=== PATIENT | male | born 1950 | race Caucasian/White ===

== ENCOUNTER 2023-03-22 15:01 | Inpatient (IN) | payer MEDICARE, SELFPAY ==
[2023-03-22] VITALS (7 sets, daily range): BP systolic 106–181; BP diastolic 70–93; PULSE 71–120; RESP 20–120; TEMP 36.1–36.7; O2SAT 90–94; BMI 32.0
--- NOTE | ~2023-03-22 | XR_ITS ---
EXAMINATION: XR chest 1V portable DATE: 03/25/2023 10:30 INDICATION: Cough and shortness of breath. TECHNIQUE: A single frontal view of the chest was obtained. COMPARISON: Chest single view 03/23/2023 FINDINGS: There are airspace opacities at left lung base. No pleural effusion or pneumothorax. The he art size is normal. IMPRESSION: 1. Airspace opacities at left lung base, consistent with atelectasis versus pneumonia. Reviewed, dictated and finalized at location E. ER ATTENDANT IMPRESSION: 1. Airspace opacities at left lung base, consistent with atelectasis versus pne umonia.
--- NOTE | ~2023-03-22 | XR_ITS ---
Portable chest x-ray Comparison: 08/21/2018 Clinical History: Cough Findings: Lungs are clear, without focal consolidation or pleural effusion. Cardiomediastinal silho uette is stable. Bones and soft tissues are unremarkable. Impression: Clear lungs. Reviewed, dictated and finalized at location . GOLF PROFESSIONAL Impression: Clear lungs.
--- NOTE | ~2023-03-22 | CT_ITS ---
EXAMINATION: CT brain wo con DATE: 03/22/2023 16:50 INDICATION: Fall. Seizure. Confusion. TECHNIQUE: Computed tomography (CT) of the head was performed without intravenous contrast. The mA wa s adjusted according to patient size. Iterative reconstruction technique was employed. Exam dose: 12 10.67 mGy-cm total exam DLP. COMPARISON: 08/21/2018 MRI brain/brainstem 08/21/2018 CT brain FINDINGS: Examination is limited by motion artifact despite 2 sets of images. There is an old left parieto-occipital infarct, present on 08/21/2018. There is prominent bilateral carotid siphon and supraclinoid internal carotid artery calcification. V ertebral and basilar artery calcifications. There is nonspecific diminished attenuation of the cerebr al white matter, likely due to chronic small vessel ischemic changes. No apparent intracranial mass lesion or hemorrhage. No midline shift or mass effect is noted. No subd ural or epidural hematoma is detected. There is radiopaque material within the middle meningeal artery and branches at the foramen spinosum and along the inner table of the skull presumably from previous interventional procedure to occlude t he artery. There is mild mucoperiosteal thickening of the maxillary sinuses. The remainder of the paranasal sinu ses and the mastoid air cells are normally developed and aerated. Likely old blowout fracture of the medial wall of the left orbit. Left frontal raquel hole. No skull fracture or bone destruction is noted. 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 Reviewed, dictated and finalized at location L. 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
--- NOTE | ~2023-03-22 | XR_ITS ---
EXAMINATION: XR barium swallow modified DATE: 03/26/2023 10:52 INDICATION: Dysphagia. TECHNIQUE: The patient was given barium-containing material of multiple consistencies to swallow by mariel duff speech pathologist while I performed fluoroscopy. Dose-area product was [id number] Gy-cm2. FINDINGS: Oral Stage: Within functional limits Pharyngeal Phase: Reduced laryngeal elevation, reduced tongue base retraction, piriform sinus residu e Laryngeal penetration with thin liquids Cervical/Esophageal Stage: Within functional limits IMPRESSION: Modified esophagram findings as above. Please refer to the speech [facility] report [facility]. Reviewed, dictated and finalized at Location A. Reviewed, dictated and finalized at location A. MAKER IMPRESSION: Modified esophagram findings as above. Please refer to the speech t herapy report for specific recommendations.
--- NOTE | ~2023-03-22 | MR_ITS ---
EXAMINATION: MR brain/brain stem wo/w con DATE: 03/28/2023 11:34 INDICATION: Seizures TECHNIQUE: Magnetic resonance imaging (MRI) of the brain and brainstem was performed without and with 20 mL Multihance intravenous contrast. Sequences included sagittal and axial T1-weighted SE, axial d iffusion-weighted FS SE, axial 3D SWAN, axial T2-weighted FLAIR, and axial T2-weighted FSE. Postcontr ast axial and coronal T1-weighted SE was obtained. Apparent diffusion coefficient (ADC) maps were cre ated. COMPARISON: Head CT dated 03/25/2023 and brain MR dated 08/22/2019 FINDINGS: Small region of encephalomalacia at the site of a previously acute infarct in the left parieto-occipi trevon region. There are, unchanged small old lacunar infarcts along the right corpus callosum. There ar e no areas of restricted diffusion to suggest acute infarction. No acute intracranial hemorrhage or a bnormal intracranial mass lesion. There are several scattered tiny foci of susceptibility artifact co nsistent with chronic microhemorrhage in the bilateral cerebral hemispheres, basal ganglia, thalamus and rosendo which could relate to either sequela chronic hypertension or amyloid angiopathy. There are s cattered areas of nonspecific increased T2-weighted signal intensity in the cerebral white matter, pr edominantly involving the deep and periventricular white matter. There are no intraparenchymal signal abnormalities seen on the other pulse sequences. The ventricles are symmetric and normal in size. No rmal variant cavum septum pellucidum. There are no abnormal extra-axial fluid collections. Flow voids are seen in the cerebral arteries on the T2-weighted sequences consistent with their expected patenc y. Moderate mucosal thickening in the bilateral ethmoid and maxillary sinuses. Visualized orbits and soft tissues are unremarkable. There are no areas of abnormal enhancement on the post contrast images . IMPRESSION: 1. No acute intracranial process or abnormally enhancing brain lesions. 2. Old infarct in the left parieto-occipital region and a couple small old lacunar infarcts along the right corpus callosum. 3. Several scattered tiny foci of susceptibility artifact consistent with chronic microhemorrhage in the bilateral cerebral hemispheres, basal ganglia, thalami and rosendo could be sequela of chronic hyper tension or amyloid angiopathy. 4. Scattered nonspecific periventricular predominant white matter T2 hyperintensity with a small vess els disease. Reviewed, dictated and finalized at location A. ENTION MANAGER IMPRESSION: 1. No acute intracranial process or abnormally enhancing brain lesions. 2. Old infarct in the left parieto-occipital region and a couple small old lacu santo infarcts along the right corpus callosum. 3. Several scattered tiny foci of susceptibility artifact consistent with chron ic microhemorrhage in the bilateral cerebral hemispheres, basal ganglia, thalam i and rosendo could be sequela of chronic hypertension or amyloid angiopathy. 4. Scattered nonspecific periventricular predominant white matter T2 hyperinten sity with a small vessels disease.
--- NOTE | ~2023-03-22 | US_ITS ---
EXAMINATION: US abdomen limited DATE: 03/25/2023 15:06 INDICATION: Elevated liver function tests TECHNIQUE: Multiple grayscale and Doppler ultrasound images of the abdomen were obtained. COMPARISON: None available FINDINGS: The head and body of the pancreas are normal. The pancreatic tail is obscured by bowel gas. The liver is normal with normal echogenicity and echotexture. No surface nodularity. Normal hepatope trevon flow in the main portal vein. The gallbladder is normal with no abnormal wall thickening, pericho lecystic fluid or stones. The normal common bile duct measures 4 mm. There was no sonographic Sterling sign. IMPRESSION: 1. No sonographic correlate for the patient's symptoms. Reviewed, dictated and finalized at location F. EL MAKING MACHINE OPERATOR
--- NOTE | ~2023-03-22 | CT_ITS ---
EXAMINATION: CT brain wo con DATE: 03/25/2023 09:42 INDICATION: Acute mental status change. TECHNIQUE: Computed tomography (CT) of the head was performed without intravenous contrast. The mA wa s adjusted according to patient size. Iterative reconstruction technique was employed. The dose-lengt h product was 681.00 mGy-cm. COMPARISON: Head CT 03/22/2023, brain MRI 08/21/2018 FINDINGS: There is an old infarct involving left temporal parietal occipital region. There are scatte red areas of low attenuation in the cerebral white matter. There is no intracranial hemorrhage, acute infarction, or abnormal intracranial mass lesion. There is ex vacuo dilatation of trigone of left la teral ventricle. There is an old blowout fracture of medial wall of left orbit. There is mild mucosal thickening in the paranasal sinuses. The mastoid air cells are normal. There is embolization materia l in left middle meningeal artery. There is a left-sided raquel hole. IMPRESSION: 1. Old infarct involving left temporal parietal occipital region. 2. Moderate nonspecific cerebral white matter disease, which likely represents chronic small vessel i schemic disease. Reviewed, dictated and finalized at location E. R REWINDER OPERATOR IMPRESSION: 1. Old infarct involving left temporal parietal occipital region. 2. Moderate nonspecific cerebral white matter disease, which likely represents chronic small vessel ischemic disease.
--- NOTE | ~2023-03-22 | CT_ITS ---
EXAMINATION: CT cervical spine wo con DATE: 03/22/2023 16:50 INDICATION: Neck injury. Fall. TECHNIQUE: Computed tomography (CT) of the cervical spine was performed without intravenous contrast. Automated exposure control and iterative reconstruction technique were employed. The dose-length pro duct was 545.96 mGy-cm. COMPARISON: None FINDINGS: There is embolization material in the left middle meningeal artery. There is 6 degrees levo curvature of cervical spine. Vertebral body heights are normal. There is severely decreased disc heig ht at C3-C4 and mildly decreased disc height at C4-C5, C5-C6, and C6-C7. The following disc levels ar e specifically discussed: C2-C3: There is mild bilateral uncovertebral joint osteoarthritis. There is severe bilateral facet shree int osteoarthritis. There is mild bilateral neural foraminal stenosis. There is no central canal sten osis. C3-C4: There is severe bilateral uncovertebral joint osteoarthritis. There is severe bilateral facet joint osteoarthritis. There is moderate bilateral neural foraminal stenosis. There is mild central ca nal stenosis. C4-C5: There is moderate right and mild left uncovertebral joint osteoarthritis. There is severe bila teral facet joint osteoarthritis. There is mild bilateral neural foraminal stenosis. There is mild ce ntral canal stenosis. C5-C6: There is mild bilateral uncovertebral joint osteoarthritis. There is severe bilateral facet shree int osteoarthritis. There is mild bilateral neural foraminal stenosis. There is mild central canal st enosis. C6-C7: There is no uncovertebral joint osteoarthritis. There is severe bilateral facet joint osteoart hritis. There is mild bilateral neural foraminal stenosis. There is no central canal stenosis. C7-T1: There is no uncovertebral joint osteoarthritis. There is mild right and severe left facet join t osteoarthritis. There is mild left neural foraminal stenosis. There is no central canal stenosis. IMPRESSION: 1. No fracture. 2. Severe cervical spondylosis. Reviewed, dictated and finalized at location E. ESSOR OF VISUAL ARTS
--- NOTE | 2023-03-22 15:10 | PC.NURSE ---
abrasion noted to left wrist, EMS reports abrasion present on their arrival
--- NOTE | 2023-03-22 15:10 | ECG_ITS ---
Measurements Intervals [place] Rate: 100 P: 42 MA: 199 QRS: 15 QRSD: 73 T: 66 QT: 318 QTc: 411 Interpretive Statements SINUS TACHYCARDIA LOW QRS VOLTAGE IN LIMB LEADS CANNOT RULE OUT SEPTAL INFARCT, AGE INDETERMINATE BASELINE ARTIFACT- II, III, AVR, AVL, AVF ABNORMAL ECG COMPARED TO ECG 08/21/2018 11:00:30 SINUS TACHYCARDIA NOW PRESENT Electronically Signed On 03-22-2023 20:43:19 ORACLE HYPERION CONSULTANT by Ten Freeman D.O.
[2023-03-22] MEDS: LORazepam INJ (*CRX) 2 MG/ML VIAL IV PUSH ×2 (15:15→15:33)
[2023-03-22] MEDS: levETIRAcetam 1000MG/NACL100ML 1,000 MG/100 ML BAG 400 MG IVPB (15:30)
[2023-03-22 15:32] LABS: Basophils Absolute Auto 0.1 K/mm3 (0.0-0.1); Basophils Percent Auto 0.8 % (0.2-1.2); Eosinophils Absolute Auto 0.1 K/mm3 (0-0.3); Eosinophils Percent Auto 0.5 % (0-4.4); Hematocrit 56.2 % (42.0-52.0); Hemoglobin 17.5 g/dL (14.0-18.0); Immature Granulocyte Percent A 0.6 % (0-0.5); Lymphocytes Absolute Auto 3.44 K/mm3 (0.9-3.2); Lymphocytes Percent Auto 19.9 % (18.3-44.2); Mean Corpuscular HGB Conc 31.1 g/dl (32-36); Mean Corpuscular Hemoglobin 30.9 pg (26-34); Mean Corpuscular Volume 99.1 fl (80-100); Mean Platelet Volume 10.5 fl (7.4-10.4); Monocytes Absolute Auto 0.6 K/mm3 (0.1-0.6); Monocytes Percent Auto 3.5 % (2.6-8.5); Neutrophils Absolute Auto 12.9 K/mm3 (1.3-6.7); Neutrophils Percent Auto 74.7 % (45.5-73.1); Platelet Count Result 270 k/mm3 (150-375); Red Blood Count 5.67 M/mm3 (4.6-6.20); Red Cell Distribution Width 12.3 % (11.5-14.5); White Blood Count 17.3 K/mm3 (4.5-10.0)
--- NOTE | 2023-03-22 15:32 | PC.NURSE ---
continues to be combative rolling on bed, another dose of ativen given per MADISON Ordoñez
[2023-03-22 15:43] LABS: Alanine Aminotransferase 50 U/L (6-50); Albumin Level 4.9 g/dL (3.5-5.1); Alkaline Phosphatase 101 U/L (38-126); Anion Gap 29 mmol/L (8-16); Aspartate Amino Transferase 26 U/L (17-59); Bilirubin,Total 1.1 mg/dL (0.2-1.3); Blood Urea Nitrogen 8 mg/dL (9-20); Calcium 9.4 mg/dL (8.4-10.2); Carbon Dioxide 13 mmol/L (22-30); Chloride 99 mmol/L (98-107); Estimated CRCL calculation 78 ml/min; Estimated Glomerular Filt Rate > 60; Glucose 213 mg/dL (65-110); Potassium 4.1 mmol/L (3.4-5.0); Sodium 141 mmol/L (137-145)
[2023-03-22 15:45] LABS: INR 1.1; Partial Thromboplastin Time 30.9 SECONDS (22.3-36.8); Prothrombin Time 14.3 Seconds (11.1-14.7)
[2023-03-22 15:50] LABS: Creatine Kinase 170 U/L (55-170)
[2023-03-22 15:59] LABS: Appearance Urine Clear (Clear); Bacteria Urine None Seen /hpf; Bilirubin Urine Negative (Negative); Blood Urine 2+ (Negative); Color Urine Yellow (Yellow); Glucose Urine UA Negative (Negative); Ketones Urine Trace mg/dL (Negative); Leukocyte Esterase Ur Negative LEU/UL (Negative); Nitrate Urine Negative (Negative); Protein Urine 2+ mg/dL (Negative); Specific Grav Ur 1.013 (1.001-1.035); Squamous Epithelial Cell Urine None seen /hpf (Few); Transitional Epi Cells Urine Present /hpf (None Seen); Urobilinogen Urine 0.2 mg/dL (<2.0); WBC Urine 0-5 /hpf
[2023-03-22 16:00] LABS: Add Urine Microscopic? YES
[2023-03-22 16:13] LABS: Barbiturate Screen Urine Negative (Negative); Benzodiazepines Screen Urine Negative (Negative)
[2023-03-22 16:13] LABS: Lactic Acid Reflex 20.2 mmol/L (0.7-2.0)
[2023-03-22 16:14] LABS: Amphetamine Screen Urine Negative (Negative); Cannabinoid Screen Urine Negative (Negative); Cocaine Screen Urine Negative (Negative); Methadone Screen Urine Negative (Negative); Opiate Screen Urine Negative (Negative)
--- NOTE | 2023-03-22 16:14 | ED.SEIZURE ---
HPI - Seizure General Chief Complaint: Seizure Stated Complaint: seizure Time Seen by Provider: 03/22/23 15:13 History of Present Illness HPI Narrative: Patient is a 72 year old male who presents to the emergency department this afternoon via EMS due to a seizure episode. EMS was called by patient's family members and when they arrived patient was noted to be postictal. On route to the emergency department, patient had another witnessed seizure episode by EMS. EMS did not administer any medications as they did not have any IV. EMS was informed that the patient did have a fall today and did hit his head, however, it is unsure if the fall was before or after the seizure episode. The remainder of history of present illness and review of systems limited secondary to the patient's current postictal status. Related Data Allergies Allergy/AdvReac Type Severity Reaction Status Date / Time codeine Allergy Unknown Nausea and Verified 04/13/22 14:01 Vomiting Review of Systems Review of Systems: Unable to obtain a full review of systems secondary to the patient's current postictal status. PMFSH Past Medical History Medical History Dysarthria Expressive aphasia History of CVA with residual deficit Smoking Surgical History Surgical History H/O umbilical hernia repair Nasal fracture Family History Family History Father Heart disease Sibling Heart disease Mother Hypothyroidism Social History Social History Smoking packs per day: 0.5 Smoking cigarettes per day: 10.0 Years smoked: 40 Smoking pack-years: 20.00 Smoking status: Current every day smoker Tobacco type: cigarettes Second hand tobacco smoke exposure: No Alcohol intake: former Substance use: former Substance use type: crack/cocaine Lack of Transportation: No Lack of Food: Never True Current Housing: I Have Housing Concerned About Future Housing: No Difficulty Paying Gas/Electric Bills: No Difficulty Paying for Meds: No Currently Unemployed: No Education: Bachelor's Degree Difficulty w/ Childcare or Family Care: No Living arrangements: with family Occupation/Education: unemployed Gender identity (if verbalized by the patient): Male Exam Narrative: General: Postictal, agitated, afebrile. HEENT: PERRL, no rhinorrhea, no post nasal drip, oropharynx clear. Neck: Trachea midline, no JVD, no lymphadenopathy, C-collar placed. Cardiovascular: Tachycardic with regular rhythm, no murmurs, rubs or gallops, no peripheral edema. Respiratory: Clear to auscultation bilaterally, tachypnea, no wheezing, no rhonchi, no rubs, no respiratory distress. Abdomen: Soft, nontender, nondistended, no rebound, no guarding, no peritoneal signs. Musculoskeletal: No joint swelling or deformity, normal muscle tone. Skin: No rashes or petechia, no signs of infection. Psychiatric: Postictal and agitated. Neurological: Unable to assess as patient is currently postictal and agitated requiring soft restraints, moving all 4 extremities spontaneously, no neurological deficit appreciated within the limitation of the exam. Course Vital Signs Vital signs: Vital Signs Temperature 97.2 F L 03/22/23 15:00 Pulse Rate 120 H 03/22/23 15:00 Respiratory Rate 120 H 03/22/23 15:00 Blood Pressure 165/90 H 03/22/23 15:00 Pulse Oximetry 94 03/22/23 15:00 Oxygen Delivery Room Air 03/22/23 15:00 Temperature 97.2 F L 03/22/23 15:00 Pulse Rate 120 H 03/22/23 15:00 Respiratory Rate 120 H 03/22/23 15:00 Blood Pressure 165/90 H 03/22/23 15:00 Pulse Oximetry 94 03/22/23 15:00 Oxygen Delivery Room Air 03/22/23 15:00 MDM - Seizure MDM Narrative Medical decision making narrative: The patient was evaluated by myself in the emergency department. Histor
[2023-03-22 16:22] LABS: Influenza A QL RT-PCR Negative (Negative); Influenza B QL RT-PCR Negative (Negative); RSV RNA, RT-PCR Negative (Negative); SARS-CoV-2 RNA PCR Negative (Negative)
[2023-03-22 16:24] LABS: Phencyclidine Screen Urine Negative (Negative)
[2023-03-22] MEDS: SODIUM CHLORIDE 0.9% IV 1,000 ML 999 ML IV CONT ×2 (18:15)
[2023-03-22 18:40] LABS: Reflex Lactic Acid Yes or No Add Lactic
--- NOTE | 2023-03-22 19:38 | ADMGEN ---
This patient, Freddy Hernandez, was admitted to IMU Room 206-01. Patient/family oriented to hospital policies and general routines including ID bracelet, bed and alarms, visiting hours, pain management, procedures, bathroom and other care routines, personal items, smoking policy, room service/diet, and visiting hours. Information on how to activate the Rapid Response Team has been discussed. Patient/Family are encouraged to report perceived risks to care and to ask questions if they do not understand what they are told or what they should do.
[2023-03-22 21:11] LABS: Lactic Acid 1.3 mmol/L (0.7-2.0)
--- NOTE | 2023-03-22 21:16 | PM.IMHP ---
H&P: HPI History of Present Illness Date/Time: 03/22/23 21:45 Chief Complaint: Seizure. Narrative: This is a 72-year-old male smoker with history of seizure attributed to intracerebral hemorrhage in April 2022 who presented to the emergency department from EMS from home for evaluation of seizure activity. The patient is postictal and unable to provide any history and thus a majority of the following is obtained via a review of his EMR as well as information provided by his son. He apparently had a fall with witnessed seizure activity at home family members called 911. On EMS arrival he was postictal and had another seizure in route to the hospital. Once in the emergency department he was given lorazepam 2 mg IV x1 in addition to 1000 mg of levetiracetam. He has been postictal since that time. He reportedly had a seizure when he had his intracerebral hemorrhage last year but was never started on seizure medications. He has not had any seizures since that time up until now. He has been afebrile since arrival with stable blood pressures. Initial labs were significant for a WBC count of 17.3, lactic acid 20.2, serum carbon dioxide 13, CK 170. He is being admitted in this setting for close monitoring and neurology consultation. There were no reports of recent illnesses, medication changes, or concerns for withdrawal. Review of Systems Review of Systems: Unable to be obtained given current clinical condition. [facility] Past Medical History Medical History Dysarthria Expressive aphasia History of CVA with residual deficit Intracerebral hemorrhage Seizure Smoking Surgical History Surgical History (Updated 03/22/23 @ 23:12 by Calista Tirado PA-C) History of raquel hole surgery History of umbilical hernia repair Nasal fracture Family History Family History Father Heart disease Sibling Heart disease Mother Hypothyroidism Social History Social History (Updated 03/22/23 @ 23:12 by Calista Tirado PA-C) Social History: Surrogate medical decision maker: Arnie Hernandez, son. Code status: Full code. Smoking packs per day: 0.5 Smoking cigarettes per day: 10.0 Years smoked: 40 Smoking pack-years: 20.00 Smoking status: Current every day smoker Tobacco type: cigarettes Second hand tobacco smoke exposure: No Alcohol intake: former Substance use: former Substance use type: crack/cocaine Do You Feel Safe in your Home?: Yes Lack of Transportation: No Lack of Food: Never True Current Housing: I Have Housing Concerned About Future Housing: No Difficulty Paying Gas/Electric Bills: No Difficulty Paying for Meds: No Currently Unemployed: No Education: Decline to Answer Difficulty w/ Childcare or Family Care: No Living arrangements: with family Occupation/Education: unemployed Spiritual care concerns: No Meds Home Medications and Allergies Home Medications Medication Instructions Recorded Confirmed Type No Home Medications 03/22/23 03/22/23 History Allergies Allergy/AdvReac Type Severity Reaction Status Date / Time codeine Allergy Unknown Nausea and Verified 04/13/22 14:01 Vomiting Vital Signs Vital Signs - 24 hr 03/22/23 15:00 03/22/23 19:30 03/22/23 20:26 Temperature 97.2 F L 98.1 F Pulse Rate 120 H 90 97 Respiratory Rate 120 H 20 22 H Blood Pressure 165/90 H 161/77 H 181/93 H Pulse Oximetry 94 94 91 Oxygen Delivery Room Air Exam Narrative: General: Mildly ill-appearing gentleman supine in bed asleep. Weight: 101.3 kg. BMI: 32.0. HEENT: Pupils are approximately 3 mm and reactive. Sclera anicteric. Tacky mucous membranes. Neck: Supple. No obvious JVD or bruits. Trachea midline. Respiratory: Respirations appear nonlabored. He is snoring after receiving Ativan in the ED. lung sounds are coarse anteriorly. Cardiovascular: Regular rate and rhythm with S1-S2. Gastrointestinal
[2023-03-23] VITALS (13 sets, daily range): BP systolic 126–140; BP diastolic 64–80; PULSE 62–85; RESP 16–22; TEMP 36.2–37.1; O2SAT 90–97
[2023-03-23 04:47] LABS: Hematocrit 47.4 % (42.0-52.0); Hemoglobin 15.8 g/dL (14.0-18.0); Mean Corpuscular HGB Conc 33.3 g/dl (32-36); Mean Corpuscular Hemoglobin 30.7 pg (26-34); Mean Corpuscular Volume 92.2 fl (80-100); Mean Platelet Volume 11.4 fl (7.4-10.4); Platelet Count Result 109 k/mm3 (150-375); Red Blood Count 5.14 M/mm3 (4.6-6.20); Red Cell Distribution Width 12.4 % (11.5-14.5); White Blood Count 8.6 K/mm3 (4.5-10.0)
[2023-03-23 05:00] LABS: Alanine Aminotransferase 13 U/L (6-50); Albumin Level 3.9 g/dL (3.5-5.1); Alkaline Phosphatase 74 U/L (38-126); Anion Gap 7 mmol/L (8-16); Aspartate Amino Transferase 29 U/L (17-59); Bilirubin,Total 1.2 mg/dL (0.2-1.3); Blood Urea Nitrogen 6 mg/dL (9-20); Calcium 8.7 mg/dL (8.4-10.2); Carbon Dioxide 24 mmol/L (22-30); Chloride 105 mmol/L (98-107); Estimated CRCL calculation 100 ml/min; Estimated Glomerular Filt Rate > 60; Glucose 101 mg/dL (65-110); Magnesium 2.4 mg/dL (1.6-2.3); Potassium 3.7 mmol/L (3.4-5.0); Sodium 136 mmol/L (137-145)
[2023-03-23] MEDS: HALOPERIDOL LACTATE 5 MG/ML VIAL IM (05:06)
[2023-03-23] MEDS: diphenhydrAMINE HCl INJ 50 MG/ML VIAL IV PUSH (05:06)
[2023-03-23 05:21] LABS: Creatine Kinase 1259 U/L (55-170)
[2023-03-23] MEDS: levETIRAcetam 500 MG TABLET PO ×2 (11:15→20:41)
[2023-03-23] MEDS: SODIUM CHLORIDE 0.9% IV 1,000 ML 75 ML IV CONT (11:17)
--- NOTE | 2023-03-23 11:27 | WPDNEURCNPN ---
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 Patient has already been started on Keppra which has been initially given 1000mg intravenously followed by 500mg q.12 hours. And initially he received the lorazepam intravenously. Anticonvulsant would be continued as such with further observation over the next 24hours if seizures recur dosage will be adjusted. Consult date: 03/23/23 HPI: Freddy Hernandez is a 72 year old male admitted to the hospital through the emergency room where he was brought by the EMS due to the seizure episode EMS were called to the home by the family's member and when they arrived at the scene patient was notedly postictal while in the emergency room he had another witnessed seizure patient also has fallen at home as reported by the family member to the EMS. He is allergic to codeine and has ongoing history of expressive dysphagia with history of cerebrovascular accident in the past. He has a history of smoking pack years 20 and currently everyday smoker though his former alcohol intaker. Initial exam in the emergency room was notedly postictal with normal vital signs at the blood pressure 165/90 but temp 97.2? CBC with leukocytosis BMP with blood sugar of 213 and lactic acid of 20.2 routine lab negative including screening for the influenza a influenza B RSV and COVID. radiologically CT scan cervical spine was compatible with severe cervical spondylosis but mild cervical stenosis. CT scan of the brain revealed no bleed, chronic left parietal occipital infarct, and left frontal raquel hole with occlusion of the left middle meningeal artery. [facility] Past Medical History Medical History Dysarthria Expressive aphasia History of CVA with residual deficit Intracerebral hemorrhage Seizure Smoking Surgical History Surgical History (Updated 03/22/23 @ 23:12 by Calista Tirado PA-C) History of raquel hole surgery History of umbilical hernia repair Nasal fracture Family History Family History Father Heart disease Sibling Heart disease Mother Hypothyroidism Social History Social History (Updated 03/22/23 @ 23:12 by Calista Tirado PA-C) Social History: Surrogate medical decision maker: Arnie Hernandez, son. Code status: Full code. Smoking packs per day: 0.5 Smoking cigarettes per day: 10.0 Years smoked: 40 Smoking pack-years: 20.00 Smoking status: Current every day smoker Tobacco type: cigarettes Second hand tobacco smoke exposure: No Alcohol intake: former Substance use: former Substance use type: crack/cocaine Do You Feel Safe in your Home?: Yes Lack of Transportation: No Lack of Food: Never True Current Housing: I Have Housing Concerned About Future Housing: No Difficulty Paying Gas/Electric Bills: No Difficulty Paying for Meds: No Currently Unemployed: No Education: Decline to Answer Difficulty w/ Childcare or Family Care: No Living arrangements: with family Occupation/Education: unemployed Spiritual care concerns: No Meds Home Medications and Allergies Home Medications Medication Instructions Recorded Confirmed Type No Home Medications 03/22/23 03/22/23 History Allergies Allergy/AdvReac Type Severity Reaction Status Date / Time codeine Allergy Unknown Nausea and Verified 04/13/22 14:01 Vomiting Vital Signs Vital Signs - 24 hr 03/22/23 15:00 03/22/23 19:30 03/22/23 20:26 Temperature 36.2 C L 36.7 C Pulse R
--- NOTE | 2023-03-23 11:56 | PM.IMPN ---
Progress Note: A&P Assessment and Plan (1) Recurrent seizures: Code(s): G40.909 - Epilepsy, unspecified, not intractable, without status epilepticus Status: Acute Assessment and Plan: Patient had seizure early last year but was never was started on any medications. Patient had recurrent witnessed seizure. Patient given lorazepam and 1000 mg of Keppra in the ED. Patient started on Keppra 500 mg b.i.d.. Neurology consulted. Patient remains postictal. (2) Postictal state: Code(s): R56.9 - Unspecified convulsions Status: Acute Assessment and Plan: Patient remains postictal and is not alert or oriented. (3) Lactic acidosis: Code(s): E87.20 - Acidosis, unspecified Status: Acute Assessment and Plan: Resolved. (4) Leukocytosis: Code(s): D72.829 - Elevated white blood cell count, unspecified Status: Acute Assessment and Plan: Resolved. Subjective Date/time seen: 03/23/23 11:56 Interval history: Patient is postictal and could not answer any questions. He was not alert or oriented. Awaiting neuro recommendations. Patient was coughing on examination. Will order chest x-ray. Exam Narrative: GENERAL: Comfortable, no acute distress HENMT: moist mucous membranes EYES: EOM intact b/l NECK: no lymphadenopathy RESPIRATORY: Bibasilar crackles, distant breath sounds CARDIO: RRR GI: soft, nontender, bowel sounds present SKIN: no rashes EXTREMITIES: no edema, redness or tenderness Objective Data Vital Signs Vital Signs: Vital Signs - 24 hr 03/22/23 15:00 03/22/23 19:30 03/22/23 20:26 Temperature 97.2 F L 98.1 F Pulse Rate 120 H 90 97 Respiratory Rate 120 H 20 22 H Blood Pressure 165/90 H 161/77 H 181/93 H Pulse Oximetry 94 94 91 Oxygen Delivery Room Air 03/22/23 20:00 03/22/23 22:00 03/22/23 23:50 Temperature Pulse Rate 86 88 74 Respiratory Rate Blood Pressure Pulse Oximetry Oxygen Delivery 03/22/23 23:50 03/22/23 23:57 03/23/23 01:23 Temperature 96.9 F L Pulse Rate 78 71 76 Respiratory Rate 22 H 22 H Blood Pressure 106/70 Pulse Oximetry 91 90 Oxygen Delivery Room Air 03/23/23 03:58 03/23/23 03:58 03/23/23 04:08 Temperature 97.7 F Pulse Rate 72 72 85 Respiratory Rate 22 H 22 H Blood Pressure 140/74 Pulse Oximetry 90 96 Oxygen Delivery Room Air 03/23/23 05:36 03/23/23 08:00 Temperature 98.7 F Pulse Rate 78 72 Respiratory Rate 20 Blood Pressure 126/74 Pulse Oximetry 97 Oxygen Delivery Intake/Output Intake/Output: Intake & Output 03/20/23 03/21/23 03/22/23 03/23/23 23:59 23:59 23:59 23:59 Intake Total 2100 Balance 2100 Meds/Results Medications: Active Medications Generic Name Dose Route Start Last Admin Trade Name Freq PRN Reason Stop Dose Admin Sodium Chloride 1,000 mls @ 75 mls/hr 03/23/23 08:00 03/23/23 11:17 Normal Saline Iv IV CONT 75 mls/hr .[id number] SWAPNIL Administration Levetiracetam 500 mg 03/23/23 09:00 03/23/23 11:15 Levetiracetam 500 Mg Tablet PO 500 mg Q12HR SWAPNIL Administration Lorazepam 2 mg 03/22/23 23:18 Lorazepam Inj (*Crx) 2 Mg/Ml Vial IV PUSH Q2H PRN Seizures > 2 minutes Radiology Results: ITS Impressions Head CT 03/22/23 16:50 IMPRESSION: Limited examination due to motion; no apparent acute intracranial finding Chronic left parietal occipital infarct Cerebral atherosclerosis and chronic small vessel ischemic changes of the cerebral white matter Prior interventional occlusion of left middle meningeal artery and left frontal raquel hole Cervical Spine CT 03/22/23 17:02 IMPRESSION: 1. No fracture. 2. Severe cervical spondylosis. Labs Labs: Laboratory Results - last 24 hr 03/22/23 03/22/23 03/22/23 15:24 15:24 15:24 WBC 17.3 H RBC 5.67 Hgb 17.5 Hct 56.2 H MCV 99.1 MCH 30.9 MCHC 3
[2023-03-23] MEDS: NICOTINE (*PBKC) 21 MG PATCH 1 PATCH TRANSDERM (13:13)
[2023-03-23] MEDS: guaiFENesin 600 MG/DEXTROMETHORPHAN 30 MG SR TAB 12 HR 1 TAB PO (20:41)
[2023-03-24] VITALS (11 sets, daily range): BP systolic 142–175; BP diastolic 79–105; PULSE 71–88; RESP 18–22; TEMP 36.3–37.2; O2SAT 94–98
[2023-03-24 05:00] LABS: Hematocrit 47.2 % (42.0-52.0); Hemoglobin 15.4 g/dL (14.0-18.0); Mean Corpuscular HGB Conc 32.6 g/dl (32-36); Mean Corpuscular Hemoglobin 30.6 pg (26-34); Mean Corpuscular Volume 93.8 fl (80-100); Mean Platelet Volume 10.5 fl (7.4-10.4); Platelet Count Result 198 k/mm3 (150-375); Red Blood Count 5.03 M/mm3 (4.6-6.20); Red Cell Distribution Width 12.6 % (11.5-14.5); White Blood Count 6.6 K/mm3 (4.5-10.0)
[2023-03-24 05:14] LABS: Anion Gap 5 mmol/L (8-16); Blood Urea Nitrogen 7 mg/dL (9-20); Calcium 8.6 mg/dL (8.4-10.2); Carbon Dioxide 30 mmol/L (22-30); Chloride 104 mmol/L (98-107); Estimated CRCL calculation 88 ml/min; Estimated Glomerular Filt Rate > 60; Glucose 94 mg/dL (65-110); Potassium 3.6 mmol/L (3.4-5.0); Sodium 139 mmol/L (137-145)
[2023-03-24 06:12] LABS: Creatine Kinase 6771 U/L (55-170)
[2023-03-24] MEDS: guaiFENesin 600 MG/DEXTROMETHORPHAN 30 MG SR TAB 12 HR 1 TAB PO ×2 (08:10→20:02)
[2023-03-24] MEDS: levETIRAcetam 500 MG TABLET PO ×2 (08:10→20:02)
[2023-03-24] MEDS: NICOTINE (*PBKC) 21 MG PATCH 1 PATCH TRANSDERM (08:12)
[2023-03-24] MEDS: SODIUM CHLORIDE 0.9% IV 1,000 ML 75 ML IV CONT ×2 (09:49→23:38)
--- NOTE | 2023-03-24 13:55 | PM.IMPN ---
Progress Note: A&P Assessment and Plan (1) Recurrent seizures: Code(s): G40.909 - Epilepsy, unspecified, not intractable, without status epilepticus Status: Acute Assessment and Plan: Patient had seizure early last year but was never was started on any medications. Patient had recurrent witnessed seizure. Patient given lorazepam and 1000 mg of Keppra in the ED. Patient started on Keppra 500 mg b.i.d.. Neurology consulted. Mental status improved today. (2) Rhabdomyolysis: Code(s): M62.82 - Rhabdomyolysis Status: Acute Assessment and Plan: Patient CK level 1259, 6771 Likely due to seizure activity Continue to trend IV fluids continued. (3) Postictal state: Code(s): R56.9 - Unspecified convulsions Status: Acute Assessment and Plan: Patient remains postictal and is not alert or oriented. (4) Lactic acidosis: Code(s): E87.20 - Acidosis, unspecified Status: Acute Assessment and Plan: Resolved. (5) Leukocytosis: Code(s): D72.829 - Elevated white blood cell count, unspecified Status: Acute Assessment and Plan: Resolved. Subjective Date/time seen: 03/24/23 13:55 Interval history: Patient alert oriented to self, time and place. He believes that he had a fall that brought him into the hospital but later discussed with him that he had a seizure. He does say some things that do not make a whole lot of sense that I do not believe her his baseline. 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 Patient has elevated CK and will continue to trend this. His LFTs and kidney function are stable. He denies any pain. PT OT working with him. Exam Narrative: GENERAL: Comfortable, no acute distress HENMT: moist mucous membranes EYES: EOM intact b/l NECK: no lymphadenopathy RESPIRATORY: Bibasilar crackles, distant breath sounds CARDIO: RRR GI: soft, nontender, bowel sounds present SKIN: no rashes EXTREMITIES: no edema, redness or tenderness Objective Data Vital Signs Vital Signs: Vital Signs - 24 hr 03/23/23 16:58 03/23/23 16:00 03/23/23 14:00 Temperature Pulse Rate 63 62 Respiratory Rate Blood Pressure Pulse Oximetry Oxygen Delivery Room Air 03/23/23 14:00 03/23/23 16:00 03/23/23 18:00 Temperature 97.2 F L Pulse Rate 62 73 75 Respiratory Rate 18 Blood Pressure 129/70 Pulse Oximetry 96 Oxygen Delivery 03/23/23 19:49 03/23/23 20:00 03/23/23 20:00 Temperature 98.5 F Pulse Rate 66 73 73 Respiratory Rate 18 18 Blood Pressure 131/64 Pulse Oximetry 94 94 Oxygen Delivery Room Air 03/23/23 21:19 03/24/23 00:00 03/24/23 00:00 Temperature Pulse Rate 76 75 75 Respiratory Rate 18 Blood Pressure Pulse Oximetry 94 Oxygen Delivery Room Air 03/24/23 00:19 03/24/23 02:00 03/24/23 04:00 Temperature 97.7 F Pulse Rate 71 78 77 Respiratory Rate 18 Blood Pressure 144/85 H Pulse Oximetry 94 Oxygen Delivery 03/24/23 04:00 03/24/23 04:50 03/24/23 06:00 Temperature 98.0 F Pulse Rate 77 71 84 Respiratory Rate 18 18 Blood Pressure 166/90 H Pulse Oximetry 94 98 Oxygen Delivery Room Air 03/24/23 08:00 03/24/23 08:00 03/24/23 08:00 Temperature 97.4 F L Pulse Rate 88 83 83 Respiratory Rate 20 Blood Pressure 166/105 H Pulse Oximetry 96 Oxygen Delivery Room Air 03/24/23 10:00 Temperature Pulse Rate 79 Respiratory Rate Blood Pressure Pulse Oximetry Oxygen Delivery Intake/Output Intake/Output: Intake & Output 03/21/23 03/22/23 03/23/23 03/24/23 23:59 23:59 23:59 23:59 Intake Total 2100 880 2030 Output Total 400 600 Balance 2100 480 1430 Meds/Results Medications: Active Medications Generic Name Dose Route Start Last Admin Trade Name Freq PRN Reason Stop Dose Admin Guaifenesin/Dextromethorphan 1 tab 03/23/23 21:00 03/24/23
[2023-03-24] MEDS: OLANZapine 5 MG, WATER, STERILE FOR INJECTION 2.1 ML IM (16:24)
[2023-03-24] MEDS: hydrALAZINE HCL 20 MG/ML VIAL 10 MG IV PUSH (17:08)
--- NOTE | 2023-03-24 19:05 | PM.EVENT ---
Event Note Event Note Event Note: Cross Coverage: Patient becoming more agitated despite being given olanzapine 5 mg IM. Will trial 1 of Ativan IVP, previously did not tolerate Haldol 5 mg. Adding melatonin 5 mg HS, per bedside RN report patient has not been sleeping for the past few nights and there is concern for some hospital delirium.
[2023-03-24] MEDS: MELATONIN 5 MG TABLET PO (20:02)
[2023-03-24] MEDS: LORazepam INJ (*CRX) 2 MG/ML VIAL 1 MG IV PUSH (23:09)
[2023-03-25] MEDS: LORazepam INJ (*CRX) 2 MG/ML VIAL 1 MG IV PUSH (00:31)
[2023-03-25] MEDS: HALOPERIDOL LACTATE 5 MG/ML VIAL IM (00:48)
[2023-03-25 04:54] LABS: Hematocrit 46.6 % (42.0-52.0); Hemoglobin 15.3 g/dL (14.0-18.0); Mean Corpuscular HGB Conc 32.8 g/dl (32-36); Mean Corpuscular Hemoglobin 30.4 pg (26-34); Mean Corpuscular Volume 92.5 fl (80-100); Mean Platelet Volume 10.4 fl (7.4-10.4); Platelet Count Result 181 k/mm3 (150-375); Red Blood Count 5.04 M/mm3 (4.6-6.20); Red Cell Distribution Width 12.6 % (11.5-14.5); White Blood Count 6.4 K/mm3 (4.5-10.0)
[2023-03-25 05:07] LABS: Alanine Aminotransferase 21 U/L (6-50); Albumin Level 3.4 g/dL (3.5-5.1); Alkaline Phosphatase 69 U/L (38-126); Anion Gap 6 mmol/L (8-16); Aspartate Amino Transferase 134 U/L (17-59); Bilirubin,Total 1.5 mg/dL (0.2-1.3); Blood Urea Nitrogen 6 mg/dL (9-20); Calcium 8.6 mg/dL (8.4-10.2); Carbon Dioxide 26 mmol/L (22-30); Chloride 109 mmol/L (98-107); Estimated CRCL calculation 115 ml/min; Estimated Glomerular Filt Rate > 60; Glucose 107 mg/dL (65-110); Potassium 3.3 mmol/L (3.4-5.0); Sodium 141 mmol/L (137-145)
[2023-03-25 07:32] VITALS: BP 157/100; PULSE 67; RESP 20; TEMP 36.6; O2SAT 98
[2023-03-25] MEDS: levETIRAcetam 500 MG TABLET PO (08:20)
[2023-03-25] MEDS: NICOTINE (*PBKC) 21 MG PATCH 1 PATCH TRANSDERM (08:28)
[2023-03-25] MEDS: guaiFENesin 600 MG/DEXTROMETHORPHAN 30 MG SR TAB 12 HR 1 TAB PO ×2 (08:28→20:53)
[2023-03-25 08:41] VITALS: O2SAT 96
[2023-03-25] MEDS: amLODIPine BESYLATE 2.5 MG TABLET PO (09:20)
[2023-03-25] MEDS: POTASSIUM CHLORIDE 20 MEQ ER TABLET PO (09:21)
[2023-03-25 09:31] LABS: Creatine Kinase 15654 U/L (55-170)
[2023-03-25 11:59] LABS: Ammonia 18 umol/L (9-30)
--- NOTE | 2023-03-25 12:26 | PM.IMPN ---
Progress Note: A&P Assessment and Plan (1) Recurrent seizures: Code(s): G40.909 - Epilepsy, unspecified, not intractable, without status epilepticus Status: Acute Assessment and Plan: Patient had seizure early last year but was never was started on any medications. Patient had recurrent witnessed seizure. Patient given lorazepam and 1000 mg of Keppra in the ED. Patient started on Keppra 500 mg b.i.d., this was discontinued on 03/25/23 due to patients worsening mental status. Lacosamide 100 mg started. Neurology consulted. MRI ordered. EEG ordered (2) Rhabdomyolysis: Code(s): M62.82 - Rhabdomyolysis Status: Acute Assessment and Plan: Patient CK level 1259, 6771, 50731 Likely due to seizure activity Continue to trend IV fluids continued. LFT's elevated with bili of 1.5 and AST of 134. (3) Postictal state: Code(s): R56.9 - Unspecified convulsions Status: Acute Assessment and Plan: Patient remains postictal and is not alert or oriented. (4) Lactic acidosis: Code(s): E87.20 - Acidosis, unspecified Status: Acute Assessment and Plan: Resolved. (5) Leukocytosis: Code(s): D72.829 - Elevated white blood cell count, unspecified Status: Acute Assessment and Plan: Resolved. Subjective Date/time seen: 03/25/23 12:26 Interval history: Patient is not alert or oriented today. He did have episode of confusion and combativeness last night and did receive several antipsychotic medications. Patient CK continues to worsen. Discussed this with attending physician and neurologist and decided that patient would be best to try new seizure medication as well as MRI and EEG ordered. Will continue to monitor him. He is unable to answer any my questions appropriately today. Repeat CT of the head was unchanged, ammonia level, TSH, B12 folate all within normal limits. Exam Narrative: GENERAL: Comfortable, no acute distress HENMT: moist mucous membranes EYES: EOM intact b/l NECK: no lymphadenopathy RESPIRATORY: Bibasilar crackles, distant breath sounds CARDIO: RRR GI: soft, nontender, bowel sounds present SKIN: no rashes EXTREMITIES: no edema, redness or tenderness Objective Data Vital Signs Vital Signs: Vital Signs - 24 hr 03/24/23 13:50 03/24/23 16:46 03/24/23 20:16 Temperature 99 F 98.8 F Pulse Rate 84 88 Respiratory Rate 22 H 22 H Blood Pressure 175/90 H 142/79 H Pulse Oximetry 98 94 Oxygen Delivery Room Air 03/24/23 23:47 03/25/23 07:32 03/25/23 08:41 Temperature 98.1 F 97.8 F Pulse Rate 86 67 Respiratory Rate 22 H 20 Blood Pressure 142/79 H 157/100 H Pulse Oximetry 96 98 96 Oxygen Delivery Room Air 03/25/23 08:00 Temperature Pulse Rate Respiratory Rate Blood Pressure Pulse Oximetry Oxygen Delivery Room Air Intake/Output Intake/Output: Intake & Output 03/22/23 03/23/23 03/24/23 03/25/23 23:59 23:59 23:59 23:59 Intake Total 2100 880 3270 1190 Output Total 400 2525 200 Balance 2100 480 745 990 Meds/Results Medications: Active Medications Generic Name Dose Route Start Last Admin Trade Name Freq PRN Reason Stop Dose Admin Amlodipine Besylate 2.5 mg 03/25/23 09:00 03/25/23 09:20 Amlodipine Besylate 2.5 Mg Tablet PO 2.5 mg QAM SWAPNIL Administration Guaifenesin/Dextromethorphan 1 tab 03/23/23 21:00 03/25/23 08:28 Guaifenesin 600 Mg/Dextromethorphan 30 Mg Sr Tab 12 Hr PO 1 tab Q12HR SWAPNIL Administration Hydralazine HCl 10 mg 03/24/23 16:50 Hydralazine Hcl 20 Mg/Ml Vial IV PUSH Q8H PRN Blood Pressure - High Sodium Chloride 1,000 mls @ 125 mls/hr 03/23/23 08:00 03/24/23 23:38 Normal Saline Iv IV CONT 75 mls/hr .Q8H SWAPNIL Administration Lacosamide 100 mg 03/25/23 21:00 Lacosamide (*Crx) 100 Mg Tablet PO Q12HR SWAPNIL Lorazepam 2 mg 03/22/23 23:18 Lorazepa
[2023-03-25 13:04] LABS: Folic Acid 7.3 ng/mL (2.76->20)
[2023-03-25] MEDS: SODIUM CHLORIDE 0.9% IV 1,000 ML 125 ML IV CONT ×3 (13:16→21:04)
--- NOTE | 2023-03-25 13:21 | WPDNEUROPN ---
Progress Note: A&P Assessment and Plan (1) Seizure: Code(s): R56.9 - Unspecified convulsions Status: Acute (2) Postictal state: Code(s): R56.9 - Unspecified convulsions Status: Acute (3) Rhabdomyolysis: Code(s): M62.82 - Rhabdomyolysis Status: Acute (4) Altered mental status: Code(s): R41.82 - Altered mental status, unspecified Status: Acute Plan Mr. 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 Course has been complicated by lack of improvement in his mental status since 03/22. Initially thought to be prolonged post-ictal status or medication effect, but patient is still not at his baseline. UDS was negative. UA not concerning for infection. Patient is at risk for subclinical seizures, which could potentially explain his persistent encephalopathy. CK has been uptrending as well, but he has not had any obvious involuntary movements since he was admitted that would suggest seizure. CK elevation could be due the initial seizure a few days ago, or medication induced? Switched Keppra to Lacosamide. Also considering delirium as cause of worsening mental status. Routine EEG showed diffuse slowing but no seizures. - Obtain MRI brain with and without contrast - Discontinued Keppra - Start Lacosamide 100mg BID - If MRI brain cannot be done, or if unrevealing and patient continues to remain encephalopathic, recommend LP with CSF analysis for possible meningitis/encephalitis; may also need to consider transfer for continuos EEG monitoring. Subjective Date/time seen: 03/25/23 13:21 Interval history: Mr. Hernandez is a 72 year old male with a history of ICH in April 2022, and seizure presenting due to breakthrough seizure. Patient presented on 03/22 after having a witnessed seizure at home. Family members called 911. On EMS arriva, patient was postictal and he had another seizure en route to the hospital. Once he arrived to [facility] ED he was given a dose of Ativan 2mg x 1 in addition to 1000mg of Keppra. Patient had a seizure in the acute setting of the ICH in Apr 2022, but was never started on anti-seizure medication. He was started on Keppra 500mg BID on this admission. Patient's mental status from this admission has not improved since he presented. 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 CT head has been done twice during this admission, most recently today, which did not show anything acute. 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 Patient has not had any obvious seizure-like activity since he has been admitted. His CK has continued to uptrend (was 170 on admission and now 15,000s). Hospitalist was concerned that maybe Keppra was causing CK elevation, so we switched to Lacosamide 100mg BID. Son is at beside. He thinks patient is worse compared to yesterday. Patient was acting similarly when he had ICU delirium with his brain bleed last year. Review of Systems Review of Systems: ROS unobtainable: Yes unobtainable due to mental status Exam Const: General: comfortable and no acute distress HENMT: Mouth: Yes moist mucous membranes Eyes: Pupils: Equal, round and reactive pupils present EOM: EOMs intact bilaterally Resp: Effort & Inspection: normal respiratory effort Skin: General skin exam: normal color Neuro: Other: AOxself, knew he is at [facility], Pupils equal and reactive bilaterally, EOMI, face symmetric, facial sensation intact, strength is symmetric and age approrpiate bilaterally. Sensation appears to be intact throughout. He had some difficulty following commands for FNF but no evidence of obvious dysmetria. Language comprehension intact, but speech is somewhat garbled. Gait deferred. Extrem: General: normal to inspection Objective Data Vital Signs Vital Signs: Vital Signs - 24 hr 03/24/23 13:
--- NOTE | 2023-03-25 13:31 | PCOTNOTE ---
The patient treatment was not able to be completed patient getting and X-ray. Will plan to continue treatment per plan of care.
[2023-03-25 13:42] LABS: Appearance Urine Clear (Clear); Bilirubin Urine Negative (Negative); Blood Urine Negative (Negative); Color Urine Yellow (Yellow); Glucose Urine UA Negative (Negative); Ketones Urine Negative (Negative); Leukocyte Esterase Ur Negative LEU/UL (Negative); Nitrate Urine Negative (Negative); Protein Urine Negative (Negative); Specific Grav Ur 1.015 (1.001-1.035); pH Urine 6.5 (5.0-9.0)
[2023-03-25 13:44] LABS: Add Urine Microscopic? NO
--- NOTE | 2023-03-25 15:18 | PCSTNOTE ---
Please refer to the Bedside Swallow Evaluation in the EMR. Please note, silent aspiration cannot be ruled out at bedside.
--- NOTE | 2023-03-25 15:50 | P.NEURO_ITS ---
Neurology EEG Report General Information Date of Study: 03/25/23 TEST Routine EEG DIAGNOSIS Seizure-like activity CONDITION OF RECORDING Encephalopathic EEG NUMBER [id number] CLINICAL HISTORY Patient has a history of seizure in the setting of intracranial hemorrhage. He presented with a seizure resulting in this admission. He remains encephalopathic. EEG DESCRIPTION There is no well-formed posterior dominant rhythm or anterior posterior gradien t. The recording is continuous. No significant asymmetries of background activities are noted. The background consists of mostly theta range waves with occasional superimposed beta range activity. There are no epileptiform discharges or seizures during this recording. Normal sleep architecture was not observed. Hyperventilation and photic stimulation were not performed due to patient's clinical status. IMPRESSION This is an abnormal routine EEG due to the lack of well formed posterior dominant rhythm with mild diffuse slowing. These findings can be seen in the setting of mild encephalopathy due to undetermined etiology. No seizures or epileptiform features were observed during the recording. Clinical correlation recommended.
[2023-03-25 16:00] VITALS: BP 168/94; PULSE 66; RESP 18; TEMP 36.9; O2SAT 97
--- NOTE | 2023-03-25 18:23 | PC.NURSE ---
records requested from [facility] at 03/25/23 at 1359. No records yet received.
[2023-03-25 20:00] VITALS: PULSE 71; RESP 20; O2SAT 98
[2023-03-25] MEDS: MELATONIN 5 MG TABLET PO (20:54)
[2023-03-25] MEDS: LACOSAMIDE (*CRX) 100 MG TABLET PO (20:54)
[2023-03-25 23:16] VITALS: BP 177/99; PULSE 68; RESP 18; TEMP 36.1; O2SAT 97
[2023-03-26 04:56] LABS: Hematocrit 47.3 % (42.0-52.0); Hemoglobin 15.5 g/dL (14.0-18.0); Mean Corpuscular HGB Conc 32.8 g/dl (32-36); Mean Corpuscular Hemoglobin 30.3 pg (26-34); Mean Corpuscular Volume 92.6 fl (80-100); Mean Platelet Volume 10.6 fl (7.4-10.4); Platelet Count Result 190 k/mm3 (150-375); Red Blood Count 5.11 M/mm3 (4.6-6.20); Red Cell Distribution Width 12.5 % (11.5-14.5); White Blood Count 5.7 K/mm3 (4.5-10.0)
[2023-03-26] MEDS: SODIUM CHLORIDE 0.9% IV 1,000 ML 125 ML IV CONT ×2 (04:56→14:27)
[2023-03-26 05:41] LABS: Anion Gap 7 mmol/L (8-16); Blood Urea Nitrogen 6 mg/dL (9-20); Calcium 8.6 mg/dL (8.4-10.2); Carbon Dioxide 25 mmol/L (22-30); Chloride 108 mmol/L (98-107); Estimated CRCL calculation 115 ml/min; Estimated Glomerular Filt Rate > 60; Glucose 95 mg/dL (65-110); Potassium 3.7 mmol/L (3.4-5.0); Sodium 140 mmol/L (137-145)
[2023-03-26 06:03] LABS: Creatine Kinase 8303 U/L (55-170)
[2023-03-26 07:34] VITALS: BP 148/88; PULSE 66; RESP 20; TEMP 36.9; O2SAT 100
[2023-03-26 08:00] VITALS: PULSE 66; RESP 20; O2SAT 100
[2023-03-26] MEDS: LACOSAMIDE (*CRX) 100 MG TABLET PO ×2 (09:25→20:59)
[2023-03-26] MEDS: guaiFENesin 600 MG/DEXTROMETHORPHAN 30 MG SR TAB 12 HR 1 TAB PO ×2 (09:25→20:59)
[2023-03-26] MEDS: amLODIPine BESYLATE 2.5 MG TABLET PO (09:26)
[2023-03-26] MEDS: CYANOCOBALAMIN 1,000 MCG TABLET 1000 MCG PO (09:26)
[2023-03-26] MEDS: NICOTINE (*PBKC) 21 MG PATCH 1 PATCH TRANSDERM (09:28)
--- NOTE | 2023-03-26 09:45 | WPDNEUROPN ---
Progress Note: A&P Assessment and Plan (1) Seizure: Code(s): R56.9 - Unspecified convulsions Status: Acute (2) Postictal state: Code(s): R56.9 - Unspecified convulsions Status: Acute (3) Rhabdomyolysis: Code(s): M62.82 - Rhabdomyolysis Status: Acute (4) Altered mental status: Code(s): R41.82 - Altered mental status, unspecified Status: Acute Plan Mr. 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 Course has been complicated by lack of improvement in his mental status since 03/22. Initially thought to be prolonged post-ictal status or medication effect, but patient is still not at his baseline. UDS was negative. UA not concerning for infection. CK has been uptrending as well, but he has not had any obvious involuntary movements since he was admitted that would suggest seizure. CK elevation could be due the initial seizure a few days ago, or medication induced? Switched Keppra to Lacosamide. Routine EEG showed diffuse slowing but no seizures. Mental status is improved today compared to yesterday, but still not at baseline. - Continue Lacosamide 100mg BID - Pending MRI brain with and without contrast Subjective Date/time seen: 03/26/23 09:45 Interval history: Mr. Hernandez is a 72 year old male with a history of ICH in April 2022, and seizure presenting due to breakthrough seizure. Patient presented on 03/22 after having a witnessed seizure at home. Family members called 911. On EMS arriva, patient was postictal and he had another seizure en route to the hospital. Once he arrived to [place] ED he was given a dose of Ativan 2mg x 1 in addition to 1000mg of Keppra. Patient had a seizure in the acute setting of the ICH in Apr 2022, but was never started on anti-seizure medication. He was started on Keppra 500mg BID on this admission. Patient's mental status from this admission has not improved since he presented. 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 CT head has been done twice during this admission, most recently today, which did not show anything acute. 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 Patient has not had any obvious seizure-like activity since he has been admitted. His CK has continued to uptrend (was 170 on admission and now 15,000s). Hospitalist was concerned that maybe Keppra was causing CK elevation, so we switched to Lacosamide 100mg BID. Mental status is better today. CK downtrending. Review of Systems Review of Systems: ROS unobtainable: Yes unobtainable due to mental status Exam Const: General: comfortable and no acute distress HENMT: Mouth: Yes moist mucous membranes Eyes: Pupils: Equal, round and reactive pupils present EOM: EOMs intact bilaterally Resp: Effort & Inspection: normal respiratory effort Skin: General skin exam: normal color Neuro: Other: AOx self, knew he is at [facility], not oriented to time. Pupils equal and reactive bilaterally, EOMI, face symmetric, facial sensation intact, strength is symmetric and age appropriate bilaterally. Sensation appears to be intact throughout. He had some difficulty following commands for FNF but no evidence of obvious dysmetria. Language comprehension intact, but speech is somewhat garbled. Gait deferred. Extrem: General: normal to inspection Objective Data Vital Signs Vital Signs: Vital Signs - 24 hr 03/25/23 16:00 03/25/23 23:16 03/25/23 20:00 Temperature 36.9 C 36.1 C L Pulse Rate 66 68 71 Respiratory Rate 18 18 20 Blood Pressure 168/94 H 177/99 H Pulse Oximetry 97 97 98 Oxygen Delivery Room Air 03/26/23 07:34 Temperature 36.9 C Pulse Rate 66 Respiratory Rate 20 Blood Pressure 148/88 H Pulse Oximetry 100 Oxygen Delivery Intake/Output Intake/Output: Intake & Output 03/23/23 03/24/23 03/25/23 0
--- NOTE | 2023-03-26 12:12 | PCSTNOTE ---
Modified barium swallow study (MBSS) completed. Patient was given trials of thin liquid, mildly thickened liquid, pureed consistency, mixed consistency, and solid consistency in varying amounts and manners of presentation. Oral transit time is minimally reduced, as in laryngeal elevation. No aspiration or penetration observed. Chin tuck was utilized as compensatory strategy to reduce potential aspiration risk. Recommendations: Minced moist diet (level 5) with thin liquids (level 0). Swallowing precaution recommendations placed in chart. No further speech therapy is recommended for this patient. Thank you for this referral.
--- NOTE | 2023-03-26 12:48 | PM.IMPN ---
Progress Note: A&P Assessment and Plan (1) Recurrent seizures: Code(s): G40.909 - Epilepsy, unspecified, not intractable, without status epilepticus Status: Acute Assessment and Plan: Patient had seizure early last year but was never was started on any medications. Patient had recurrent witnessed seizure. Patient given lorazepam and 1000 mg of Keppra in the ED. Patient started on Keppra 500 mg b.i.d., this was discontinued on 03/25/23 due to patients worsening mental status. Lacosamide 100 mg started. Neurology consulted. MRI ordered. EEG No seizures or epileptiform features observed (2) Rhabdomyolysis: Code(s): M62.82 - Rhabdomyolysis Status: Acute Assessment and Plan: Patient CK level 1259, 6771, 43485, 8303 Likely due to seizure activity Continue to trend IV fluids continued. LFT's elevated with bili of 1.5 and AST of 134. (3) Lactic acidosis: Code(s): E87.20 - Acidosis, unspecified Status: Acute Assessment and Plan: Resolved. (4) Leukocytosis: Code(s): D72.829 - Elevated white blood cell count, unspecified Status: Acute Assessment and Plan: Resolved. (5) Hypertension: Code(s): I10 - Essential (primary) hypertension Status: Acute Assessment and Plan: Patient has been hypertensive since being hospitalized. Started him on 2.5 mg of amlodipine Continue to monitor Subjective Date/time seen: 03/26/23 12:48 Interval history: Patient is less confused today. He is alert and oriented to self, place and situation but unable to tell me the year or president. his CK is improved from yesterday. He had modified barium swallow today which did not show any signs of aspiration. He denies any pain. [facility] so [facility] can get [facility]. Exam Narrative: GENERAL: Comfortable, no acute distress HENMT: moist mucous membranes EYES: EOM intact b/l NECK: no lymphadenopathy RESPIRATORY: distant breath sounds CARDIO: RRR GI: soft, nontender, bowel sounds present SKIN: no rashes EXTREMITIES: no edema, redness or tenderness Objective Data Vital Signs Vital Signs: Vital Signs - 24 hr 03/25/23 16:00 03/25/23 23:16 03/25/23 20:00 Temperature 98.5 F 97.0 F L Pulse Rate 66 68 71 Respiratory Rate 18 18 20 Blood Pressure 168/94 H 177/99 H Pulse Oximetry 97 97 98 Oxygen Delivery Room Air 03/26/23 07:34 03/26/23 08:00 Temperature 98.4 F Pulse Rate 66 66 Respiratory Rate 20 20 Blood Pressure 148/88 H Pulse Oximetry 100 100 Oxygen Delivery Room Air Intake/Output Intake/Output: Intake & Output 03/23/23 03/24/23 03/25/23 03/26/23 23:59 23:59 23:59 23:59 Intake Total 880 3270 4165 977 Output Total 400 2525 1300 650 Balance 867 432 4394 327 Meds/Results Medications: Active Medications Generic Name Dose Route Start Last Admin Trade Name Freq PRN Reason Stop Dose Admin Amlodipine Besylate 2.5 mg 03/25/23 09:00 03/26/23 09:26 Amlodipine Besylate 2.5 Mg Tablet PO 2.5 mg QAM SWAPNIL Administration Cyanocobalamin 1,000 mcg 03/26/23 09:00 03/26/23 09:26 Cyanocobalamin 1,000 Mcg Tablet PO 1,000 mcg QAM SWAPNIL Administration Guaifenesin/Dextromethorphan 1 tab 03/23/23 21:00 03/26/23 09:25 Guaifenesin 600 Mg/Dextromethorphan 30 Mg Sr Tab 12 Hr PO 1 tab Q12HR SWAPNIL Administration Hydralazine HCl 10 mg 03/24/23 16:50 Hydralazine Hcl 20 Mg/Ml Vial IV PUSH Q8H PRN Blood Pressure - High Sodium Chloride 1,000 mls @ 125 mls/hr 03/23/23 08:00 03/26/23 04:56 Normal Saline Iv IV CONT 125 mls/hr .Q8H SWAPNIL Administration Lacosamide 100 mg 03/25/23 21:00 03/26/23 09:25 Lacosamide (*Crx) 100 Mg Tablet PO 100 mg Q12HR SWAPNIL Administration Lorazepam 2 mg 03/22/23 23:18 Lorazepam Inj (*Crx) 2 Mg/Ml Vial IV PUSH Q2H PRN Seizures > 2 minutes Melato
[2023-03-26 15:00] VITALS: BP 155/98; PULSE 70; RESP 18; TEMP 36.8; O2SAT 96
[2023-03-26 20:50] VITALS: BP 132/84; PULSE 79; RESP 18; TEMP 36.4; O2SAT 94
[2023-03-26] MEDS: MELATONIN 5 MG TABLET PO (20:59)
[2023-03-27] MEDS: SODIUM CHLORIDE 0.9% IV 1,000 ML 125 ML IV CONT ×3 (00:25→20:19)
[2023-03-27 05:19] VITALS: BP 162/94; PULSE 72; RESP 18; TEMP 36.5; O2SAT 95
[2023-03-27 05:45] LABS: Hematocrit 47.6 % (42.0-52.0); Mean Corpuscular HGB Conc 33.6 g/dl (32-36); Mean Corpuscular Hemoglobin 30.7 pg (26-34); Mean Corpuscular Volume 91.4 fl (80-100); Mean Platelet Volume 10.4 fl (7.4-10.4); Platelet Count Result 214 k/mm3 (150-375); Red Blood Count 5.21 M/mm3 (4.6-6.20); Red Cell Distribution Width 12.3 % (11.5-14.5); White Blood Count 6.1 K/mm3 (4.5-10.0)
[2023-03-27 05:55] LABS: Alanine Aminotransferase 23 U/L (6-50); Albumin Level 3.7 g/dL (3.5-5.1); Alkaline Phosphatase 75 U/L (38-126); Anion Gap 9 mmol/L (8-16); Aspartate Amino Transferase 92 U/L (17-59); Bilirubin,Total 1.6 mg/dL (0.2-1.3); Blood Urea Nitrogen 5 mg/dL (9-20); Calcium 8.8 mg/dL (8.4-10.2); Carbon Dioxide 25 mmol/L (22-30); Chloride 106 mmol/L (98-107); Estimated CRCL calculation 117 ml/min; Estimated Glomerular Filt Rate > 60; Glucose 107 mg/dL (65-110); Potassium 3.7 mmol/L (3.4-5.0); Sodium 140 mmol/L (137-145)
[2023-03-27 06:15] LABS: Creatine Kinase 5813 U/L (55-170)
[2023-03-27] MEDS: NICOTINE (*PBKC) 21 MG PATCH 1 PATCH TRANSDERM (08:59)
[2023-03-27] MEDS: guaiFENesin 600 MG/DEXTROMETHORPHAN 30 MG SR TAB 12 HR 1 TAB PO ×2 (09:00→20:19)
[2023-03-27] MEDS: LACOSAMIDE (*CRX) 100 MG TABLET PO ×2 (09:00→20:19)
[2023-03-27] MEDS: CYANOCOBALAMIN 1,000 MCG TABLET 1000 MCG PO (09:00)
[2023-03-27] MEDS: amLODIPine BESYLATE 2.5 MG TABLET PO (09:00)
[2023-03-27] MEDS: hydrALAZINE HCL 20 MG/ML VIAL 10 MG IV PUSH (09:04)
[2023-03-27 09:06] VITALS: BP 170/99
--- NOTE | 2023-03-27 09:48 | WPDNEUROPN ---
Progress Note: A&P Assessment and Plan (1) Seizure: Code(s): R56.9 - Unspecified convulsions Status: Acute (2) Postictal state: Code(s): R56.9 - Unspecified convulsions Status: Acute (3) Rhabdomyolysis: Code(s): M62.82 - Rhabdomyolysis Status: Acute (4) Altered mental status: Code(s): R41.82 - Altered mental status, unspecified Status: Acute Plan Mr. 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 Course has been complicated by lack of improvement in his mental status since 03/22. Initially thought to be prolonged post-ictal status or medication effect, but patient is still not at his baseline. UDS was negative. UA not concerning for infection. CK was initially uptrending for a few days. CK elevation could be due the initial seizure a few days ago, or medication induced -- now downtrending. Switched Keppra to Lacosamide. Routine EEG showed diffuse slowing but no seizures. Patient overall much more alert, but still somewhat disoriented. - Continue Lacosamide 100mg BID - Pending MRI brain with and without contrast Subjective Date/time seen: 03/27/23 09:48 Interval history: Mr. Hernandez is a 72 year old male with a history of ICH in April 2022, and seizure presenting due to breakthrough seizure. Patient presented on 03/22 after having a witnessed seizure at home. Family members called 911. On EMS arriva, patient was postictal and he had another seizure en route to the hospital. Once he arrived to [place] ED he was given a dose of Ativan 2mg x 1 in addition to 1000mg of Keppra. Patient had a seizure in the acute setting of the ICH in Apr 2022, but was never started on anti-seizure medication. He was started on Keppra 500mg BID on this admission. Patient's mental status from this admission has not improved since he presented. 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 CT head has been done twice during this admission, most recently today, which did not show anything acute. 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 Patient has not had any obvious seizure-like activity since he has been admitted. His CK has continued to uptrend (was 170 on admission and now 15,000s). Hospitalist was concerned that maybe Keppra was causing CK elevation, so we switched to Lacosamide 100mg BID. No acute events overnight. Per RN patient has been more restless. Review of Systems Review of Systems: All systems reviewed & are unremarkable except as noted in HPI and below Exam Const: General: comfortable and no acute distress HENMT: Mouth: Yes moist mucous membranes Eyes: Pupils: Equal, round and reactive pupils present EOM: EOMs intact bilaterally Resp: Effort & Inspection: normal respiratory effort Skin: General skin exam: normal color Neuro: Other: AOx self, thinks he is in 'clinic' but new he is an [place] facility, not oriented to time. Pupils equal and reactive bilaterally, EOMI, face symmetric, facial sensation intact, strength is symmetric and age appropriate bilaterally. Sensation appears to be intact throughout. FNF without dysmetria bilaterally. Language comprehension intact, but speech is somewhat garbled. Gait deferred. Extrem: General: normal to inspection Objective Data Vital Signs Vital Signs: Vital Signs - 24 hr 03/26/23 15:00 03/26/23 20:50 03/26/23 20:00 Temperature 36.8 C 36.4 C L Pulse Rate 70 79 Respiratory Rate 18 18 Blood Pressure 155/98 H 132/84 Pulse Oximetry 96 94 Oxygen Delivery Room Air 03/27/23 05:19 03/27/23 09:06 Temperature 36.5 C Pulse Rate 72 Respiratory Rate 18 Blood Pressure 162/94 H 170/99 H Pulse Oximetry 95 Oxygen Delivery Intake/Output Intake/Output: Intake & Output 03/24/23 03/25/23 03/26/23 03/27/23 23:59 23:59 23:59 23:59 Intake Total 7754 1650
--- NOTE | 2023-03-27 12:21 | PM.IMPN ---
Progress Note: A&P Assessment and Plan (1) Recurrent seizures: Code(s): G40.909 - Epilepsy, unspecified, not intractable, without status epilepticus Status: Acute Assessment and Plan: Patient had seizure early last year but was never was started on any medications. Patient had recurrent witnessed seizure. Patient given lorazepam and 1000 mg of Keppra in the ED. Patient started on Keppra 500 mg b.i.d., this was discontinued on 03/25/23 due to patients worsening mental status. Lacosamide 100 mg started. Neurology consulted. MRI ordered. Waiting to hear back from [facility] due to patients hx of brain shunt. EEG No seizures or epileptiform features observed. (2) Rhabdomyolysis: Code(s): M62.82 - Rhabdomyolysis Status: Acute Assessment and Plan: Patient CK level 1259, 6771, 90499, 8303, 5813 Likely due to seizure activity Continue to trend IV fluids continued. LFT's elevated with bili of 1.6 and AST of 92. (3) Lactic acidosis: Code(s): E87.20 - Acidosis, unspecified Status: Acute Assessment and Plan: Resolved. (4) Leukocytosis: Code(s): D72.829 - Elevated white blood cell count, unspecified Status: Acute Assessment and Plan: Resolved. (5) Hypertension: Code(s): I10 - Essential (primary) hypertension Status: Acute Assessment and Plan: Patient has been hypertensive since being hospitalized. Started him on 5 mg of amlodipine Continue to monitor Subjective Date/time seen: 03/27/23 12:21 Interval history: Patient is unable to answer questions regarding where he is, year, president but did tell me that he takes care of his mother at home and his sister is now helping take care of his mother. He is very adamant that he wants to be discharged home and he will be okay. Had long conversation about how I recommend getting an MRI due to his acute confusion. Hopefully tomorrow we will hear back from [facility] regarding patient's shunt placement. Exam Narrative: GENERAL: Comfortable, no acute distress HENMT: moist mucous membranes EYES: EOM intact b/l NECK: no lymphadenopathy RESPIRATORY: distant breath sounds CARDIO: RRR GI: soft, nontender, bowel sounds present SKIN: no rashes EXTREMITIES: no edema, redness or tenderness Objective Data Vital Signs Vital Signs: Vital Signs - 24 hr 03/26/23 15:00 03/26/23 20:50 03/26/23 20:00 Temperature 98.3 F 97.5 F L Pulse Rate 70 79 Respiratory Rate 18 18 Blood Pressure 155/98 H 132/84 Pulse Oximetry 96 94 Oxygen Delivery Room Air 03/27/23 05:19 03/27/23 09:06 03/27/23 09:00 Temperature 97.7 F Pulse Rate 72 Respiratory Rate 18 Blood Pressure 162/94 H 170/99 H Pulse Oximetry 95 Oxygen Delivery Room Air Intake/Output Intake/Output: Intake & Output 03/24/23 03/25/23 03/26/23 03/27/23 23:59 23:59 23:59 23:59 Intake Total 3270 4165 3217 2420 Output Total 2525 1300 1250 1225 Balance 745 2865 1967 1195 Meds/Results Medications: Active Medications Generic Name Dose Route Start Last Admin Trade Name Freq PRN Reason Stop Dose Admin Amlodipine Besylate 2.5 mg 03/25/23 09:00 03/27/23 09:00 Amlodipine Besylate 2.5 Mg Tablet PO 2.5 mg QAM SWAPNIL Administration Cyanocobalamin 1,000 mcg 03/26/23 09:00 03/27/23 09:00 Cyanocobalamin 1,000 Mcg Tablet PO 1,000 mcg QAM SWAPNIL Administration Guaifenesin/Dextromethorphan 1 tab 03/23/23 21:00 03/27/23 09:00 Guaifenesin 600 Mg/Dextromethorphan 30 Mg Sr Tab 12 Hr PO 1 tab Q12HR SWAPNIL Administration Hydralazine HCl 10 mg 03/24/23 16:50 03/27/23 09:04 Hydralazine Hcl 20 Mg/Ml Vial IV PUSH 10 mg Q8H PRN Administration Blood Pressure - High Sodium Chloride 1,000 mls @ 125 mls/hr 03/23/23 08:00 03/27/23 11:46 Normal Saline Iv IV CONT 125 mls/hr .Q8H SWAPNIL Administration Lacosamide 100 mg 03/25/23 21:00
[2023-03-27 14:00] VITALS: BP 154/72; PULSE 92; RESP 16; TEMP 36.8; O2SAT 96
[2023-03-27] MEDS: MELATONIN 5 MG TABLET PO (20:19)
[2023-03-27 20:36] VITALS: BP 145/87; PULSE 73; RESP 16; TEMP 36.6; O2SAT 96
[2023-03-28] MEDS: SODIUM CHLORIDE 0.9% IV 1,000 ML 125 ML IV CONT (03:28)
[2023-03-28 05:36] VITALS: BP 146/78; PULSE 70; RESP 18; TEMP 36.7; O2SAT 95
[2023-03-28 06:04] LABS: Hematocrit 45.8 % (42.0-52.0); Mean Corpuscular HGB Conc 32.8 g/dl (32-36); Mean Corpuscular Hemoglobin 30.5 pg (26-34); Mean Corpuscular Volume 93.3 fl (80-100); Mean Platelet Volume 10.1 fl (7.4-10.4); Platelet Count Result 215 k/mm3 (150-375); Red Blood Count 4.91 M/mm3 (4.6-6.20); Red Cell Distribution Width 12.5 % (11.5-14.5); White Blood Count 5.4 K/mm3 (4.5-10.0)
[2023-03-28 06:18] LABS: Alanine Aminotransferase 21 U/L (6-50); Albumin Level 3.5 g/dL (3.5-5.1); Alkaline Phosphatase 65 U/L (38-126); Anion Gap 5 mmol/L (8-16); Aspartate Amino Transferase 59 U/L (17-59); Bilirubin,Total 1.4 mg/dL (0.2-1.3); Blood Urea Nitrogen 5 mg/dL (9-20); Calcium 8.6 mg/dL (8.4-10.2); Carbon Dioxide 26 mmol/L (22-30); Chloride 106 mmol/L (98-107); Estimated CRCL calculation 116 ml/min; Estimated Glomerular Filt Rate > 60; Glucose 102 mg/dL (65-110); Potassium 3.6 mmol/L (3.4-5.0); Sodium 137 mmol/L (137-145)
[2023-03-28] MEDS: guaiFENesin 600 MG/DEXTROMETHORPHAN 30 MG SR TAB 12 HR 1 TAB PO (08:03)
[2023-03-28] MEDS: CYANOCOBALAMIN 1,000 MCG TABLET 1000 MCG PO (08:04)
[2023-03-28] MEDS: amLODIPine BESYLATE 5 MG TABLET PO (08:04)
[2023-03-28] MEDS: LACOSAMIDE (*CRX) 100 MG TABLET PO (08:04)
[2023-03-28 08:18] LABS: Creatine Kinase 1428 U/L (55-170)
[2023-03-28] MEDS: NICOTINE (*PBKC) 21 MG PATCH 1 PATCH TRANSDERM (08:18)
--- NOTE | 2023-03-28 13:09 | PM.DS ---
DS: Admitting Diagnosis Discharge Date 03/28/23 Admitting Diagnosis seizure DS: Discharge Diagnosis Discharge Diagnosis (1) Recurrent seizures: Code(s): G40.909 - Epilepsy, unspecified, not intractable, without status epilepticus Status: Acute (2) Rhabdomyolysis: Code(s): M62.82 - Rhabdomyolysis Status: Acute (3) Lactic acidosis: Code(s): E87.20 - Acidosis, unspecified Status: Acute (4) Leukocytosis: Code(s): D72.829 - Elevated white blood cell count, unspecified Status: Acute (5) Hypertension: Code(s): I10 - Essential (primary) hypertension Status: Acute DS: Summary Hospital Course Hospital Course: This is a 72 YO male with a PMH of seizures. He was in the hospital last year due to seizure activity and intracranial hemorrhaging. He was not discharged home with any medications at that time. He Presented to the ED due to a witnessed seizure. He was also found to have an elevated CK. He was started on Keppra and IV fluids. He was post-ictal for approximately 2 days. He continued to have altered mental status with an A&O of 2 which is not his baseline thereafter. Neurology was consulted. Discussed patients mental status with them as well as CK and due to possible side effects from Keppra he was transitioned to Lacosamide. His CK trended down. MRI was ordered and records were requested from [facility] due to patients history of shunt placement at the time of intracranial hemorrhage. MRI was preformed and did not show any acute possess. After discussing with his son, DEDE, patient has had memory problems since his seizure last year. 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 He will be discharged to SNF for therapy treatment. His labs and vital signs are stable and he is medically cleared for discharge at this time. Time Spent with Patient Time attestation: Total time spent providing and/or coordinating discharge services: Exam Narrative: GENERAL: Comfortable, no acute distress HENMT: moist mucous membranes EYES: EOM intact b/l NECK: no lymphadenopathy RESPIRATORY: distant breath sounds CARDIO: RRR GI: soft, nontender, bowel sounds present SKIN: no rashes EXTREMITIES: no edema, redness or tenderness NEURO: B/L upper and lower extremity strength 5/5, no facial droop, no pronator drift, sensation intact. DS: Data Data Completed and Pending Labs on day of discharge: Labs from last 24 hours 03/28/23 05:54 WBC 5.4 RBC 4.91 Hgb 15.0 Hct 45.8 MCV 93.3 MCH 30.5 MCHC 32.8 RDW 12.5 Plt Count 215 MPV 10.1 Sodium 137 Potassium 3.6 Chloride 106 Carbon Dioxide 26 Anion Gap 5 L BUN 5 L Creatinine 0.60 L Estim Creat Clear Calc 116 Estimated GFR > 60 Glucose 102 Calcium 8.6 Total Bilirubin 1.4 H AST 59 ALT 21 Alkaline Phosphatase 65 Total Creatine Kinase 1428 H Total Protein 6.0 L Albumin 3.5 Discharge Plan Discharge Attending physician on discharge: Olya Aguilar Consulting providers: Kale Forbes Discharging Clinician: Glenys Jameson Patient Disposition: SNF Activity: as tolerated Diet: regular Discharge Instructions: Medications: Lacosamide 100 mg p.o. every 12 hours. Amlodipine 5 mg p.o. daily Activities: Avoid hazardous activities such as mild climbing or scuba diving. Seizure under these conditions could lead to fatal accident. Do not swim alone or participate in other similar activities without others nearby. No driving for 6 months seizure free Home care: Please take medication exactly as directed. Do not drink alcohol or use any medication without talking to primary care provider Where Medical Alert pendant are bracelet alert others to your condition. Joining local support group may help confidence and build moral. When to seek medical attention: Seizure lasting more than 5 minutes Multiple seizures in a ro
[2023-03-28 14:00] VITALS: BP 135/89; PULSE 76; RESP 18; TEMP 36.5; O2SAT 97
== END 2023-03-28 15:45 | DRG 101 ==
LOC: ANHED 17:53 → ANHIMU 19:32 → ANH3MEDSUR 03-28 13:09 → ANHIMU 03-29 11:24
PROVIDERS: Emergency Medicine; Physician Assistant; Admitting Provider Internal Medicine; Emergency Provider Emergency Medicine; PCP Internal Medicine; Visit Provider Internal Medicine Critical Care Medicine
DX: G40.909 Epilepsy, unspecified, not intractable, without status epilepticus (principal); M62.82 Rhabdomyolysis; E87.21 Acute metabolic acidosis; D72.829 Elevated white blood cell count, unspecified; I10 Essential (primary) hypertension; Z20.822 Contact with and (suspected) exposure to COVID-19; R41.0 Disorientation, unspecified; F17.210 Nicotine dependence, cigarettes, uncomplicated; I69.320 Aphasia following cerebral infarction; I69.322 Dysarthria following cerebral infarction
CPT/HCPCS: 36415; 70450; 70553; 71045; 72125; 76705; 80048; 80053; 80307; 81001; 81003; 82140; 82550; 82607; 82746; 83605; 83735; 84443; 85025; 85027; 85610; 85730; 87637; 92610; 92611; 93005; 95816; 96365; 96375; 97110; 97116; 97161; 97165; 97530; 97535; 99285; A9270; A9577; J0360; J1200; J1630; J1953; J2060; J2359; J7030; L0140